=== PATIENT | female | born 1985 ===

== ENCOUNTER 2022-02-18 06:28 | Inpatient (IN) | payer BC ==
--- OUTSIDE RECORDS SUMMARY | 2022-02-18 06:31 | XMS REPORT | Continuity of Care Document ---
:1985 Author Organization [facility] t Address [address] [place] [address] [address]. [address] [place] [address] Care Team Providers Name Role Phone ARG[place] NAM Attending Clinician Unavailable Problems This patient has no known problems. Allergies, Adverse Reactions, Alerts This patient has no known allergies or adverse reactions. Medications This patient has no known medications. Procedures This patient has no known procedures. Encounters Start End Encounter Admission Attending Care Care Encounter Source Date/Time Date/Time Type Type Clinicians Facility Department ID 2021-07-15 2021-07-15 Outpatient [facility] [id number] 00:00:00 00:00:00 [place] [address] Results This patient has no known results.
[2022-02-18] MEDS ORDERED: PROMETHAZINE INJ 25 MG/ML AMP ONE (07:22)
[2022-02-18] MEDS ORDERED: BUTORPHANOL 1 MG/ML INJ ONE (07:22)
[2022-02-18] MEDS ORDERED: MAGNES/ALUMIN/SIMET 30ML UCUP PO PRN (07:23)
[2022-02-18] MEDS ORDERED: PROMETHAZINE INJ 25 MG/ML AMP IM PRN (07:23)
[2022-02-18] MEDS ORDERED: METHYLERGONOVINE 0.2MG/ML AMP IM PRN (07:23)
[2022-02-18] MEDS ORDERED: CARBOPROST TROME 250 MCG/ML IM PRN (07:23)
[2022-02-18] MEDS ORDERED: Ringers Lactate 1,000 ML IV PRN (07:23)
[2022-02-18] MEDS ORDERED: BUTORPHANOL 1 MG/ML INJ IV PRN (07:23)
[2022-02-18] MEDS ORDERED: LIDOCAINE 1% MPF 30 ML VIAL SQ ONE (07:26)
[2022-02-18] MEDS ORDERED: FENTANYL CITR 100 MCG/2 ML IV ONE (07:56)
[2022-02-18] MEDS ORDERED: ROPIVACAINE HCL 0.2% 20ML AMP IV ONE (07:56)
[2022-02-18] MEDS ORDERED: Ringers Lactate 1,000 ML IV SCH (08:00)
[2022-02-18] MEDS ORDERED: OXYTOCIN/LR 20 UNIT/1,000 ML BAG IV SCH ×2 (08:00→11:00)
[2022-02-18] MEDS ORDERED: LIDOCAINE 1% MPF 30 ML VIAL ONE (08:07)
[2022-02-18 08:28] LABS: Absolute Lymphocytes (CBC) 3.1 K/uL (0.7-4.9); Hematocrit 34.2 % (36.0-45.0); Lymphocytes % 35.7 % (15.3-44.8); MPV 9.8 fL (7.6-11.3); RBC Red Blood Cell Count 3.81 M/uL (3.86-4.86)
[2022-02-18] MEDS ORDERED: DIPHENHYDRAMINE 25 MG TAB/CAP PO PRN (10:49)
[2022-02-18] MEDS ORDERED: BISACODYL 10 MG RECTAL SUPP PR PRN (10:49)
[2022-02-18] MEDS ORDERED: Oxycodone HCl/Acetaminophen 1 TAB TAB PO PRN ×2 (10:49)
[2022-02-18] MEDS ORDERED: ACETAMINOPHEN 500 MG TAB PO PRN (10:49)
[2022-02-18] MEDS ORDERED: DOCUSATE NA/SENNA CONC 1 TAB PO PRN (10:49)
--- NOTE | 2022-02-18 13:16 | PN ---
The patient is pushing more effectively now. She has brought the baby down a little bit, but still n eeds to come down a little bit more before we can even attempt backing. Baby looks good. She is on 8 milliunits of Pitocin. We will continue to increase the Pitocin. Hopefully, she will be able to p ush the baby out or at least down to where we can assist her with vacuum extraction sometime the next hour. TAYA/JAG Voice ID: [id number] Report ID: [id number]
--- NOTE | 2022-02-18 13:19 | PREOPHP ---
Date of Admission: 02/18/2022 History Of Present Illness: A 36-year-old, primigravida, at 37 weeks and 6 days, came in active rapi dly advancing labor, rupture of membranes this morning about 0545, had it this way. She was 3 cm on admission. Within the next hour and half, she is 9+, 0 to almost +1 station. Admitted for stabiliza tion and delivery. Family History: Noncontributory. Past Medical History: The patient had septoplasty in 2018. No serious medical illnesses. No histor y of STD. Allergies: ALLERGIC TO PENICILLIN. Medications: vitamins prior to admission. Social History: Does not smoke. Physical Examination: HEENT: Clear. Pupils equal, round, reactive to light and accommodation. Conjunctivae well perfused. No oral, lingual, or buccal lesions. Chest and Lungs: Clear. Heart: Without murmurs, thrills, heaves, or rubs. Breasts: Without masses on previous visits. Abdomen: Term size. Extremities: Clear without edema, cyanosis, or clubbing. Pelvic: Exam is as stated, 9.5 cm, nita every 60-90 seconds. Baby looks good on the monitor. Vital signs are stable. Assessment And Plan: At her request, she has been given 1 mg of Stadol IV, in good control with her breathing techniques. Anticipate delivery relatively soon. TAYA/JAG Voice ID: [id number]
--- NOTE | 2022-02-18 14:49 | OP ---
Surgeon: Mario Montenegro MD Procedure In Detail: A 36-year-old, primigravida, at 37 weeks 6 days, came in with ruptured of membr anes, clear fluid, rapidly advancing labor. Stadol 1 mg IV during the labor and then as the patient reached complete, but was not pushing effectively, at her request she was given spinal block with Dr. Heber jeffery. Second stage of approximately an hour, possibly slightly more. Vacuum-assisted delivery of an estimated 7-pound male infant, Apgars 9 and 10. Small episiotomy extended to a second -degree episiotomy with laceration. All repaired with 2-0 chromic under local infiltration. Ross graves delivery of the placenta, which was heavily calcified, but otherwise normal. Estimated blood loss 350 cc. The patient tolerated all procedures well. Rh positive, immune to rubella, negative strep. COVID pending. Final Diagnoses: Term intrauterine at 37 weeks and 6 days, spontaneous labor, spinal block anesthesia with local supplementation, vacuum-assisted delivery. TAYA/JAG Voice ID: [id number] Report ID: [id number]
[2022-02-18 18:24] VITALS: BMI 27.0
[2022-02-18] MEDS: IBUPROFEN 600 MG TAB PO PRN (21:19)
[2022-02-19 00:07] LABS: RPR (Rapid Plasma Reagin) NON-REACT (NON-REACT)
[2022-02-19] MEDS: IBUPROFEN 600 MG TAB PO PRN (04:03)
[2022-02-19 08:45] VITALS: BP 132/91; TEMP 98
--- NOTE | 2022-02-19 08:49 | DS ---
Hospital Course: A 36-year-old, primigravida, at 37 weeks 6 days, delivered an estimated 7-pound mal e infant after approximately an hour second stage, vacuum-assisted delivery. Apgars 9 and 10. Small episiotomy turned into a second-degree laceration, repaired with 2-0 chromic, local infiltration to augment the spinal block with fentanyl the patient had earlier. Schultze delivery of the placenta, w as inspected and noted to be intact and normal. 350 cc blood loss. Rh positive, immune to rubella, negative strep, COVID status pending. afebrile, ambulating, voiding. Lochia is normal. Will be dismissed later today to report back to my office in 6 weeks for followup to report any tempe rature elevation of 100 degrees or greater, severe pain, heavy bleeding, or any other type of abnorma lities. No post spinal block problems. She has had her Tdap immunization during the . Oliver s not require any analgesics on dismissal. Final Diagnoses: Term intrauterine at 37 weeks 6 days, spontaneous rupture of membranes, v aginal delivery. Spinal block and local anesthesia. Vacuum-assisted delivery. NBC/MODL Voice ID: [id number] Report ID: [id number]
[2022-02-25 14:27] LABS: HBsAG Nonreactive (Nonreactive)
== END 2022-02-19 11:45 | disposition home or self-care (01) | DRG 807 ==
LOC: 2ND-WC 06:28
PROVIDERS: ADMIT Specialist; ATTEND Specialist
PROC: 10D07Z6 Extraction of Products of Conception, Vacuum, Via Natural or Artificial Opening (ICD-10-PCS; principal; 2022-02-18)
PROC: 0KQM0ZZ Repair Perineum Muscle, Open Approach (ICD-10-PCS; 2022-02-18)
PROC: 0W8NXZZ Division of Female Perineum, External Approach (ICD-10-PCS; 2022-02-18)
DX: O75.81 Maternal exhaustion complicating labor and delivery (principal); Z37.0 Single live birth; Z3A.37 37 weeks gestation of pregnancy; Z88.0 Allergy status to penicillin
CPT/HCPCS: 36415; 85025; 86592; 86901; 87340; J0595; J2210; J2550; J2590; J3010